=== PATIENT | female | born 1995 | race Caucasian/White ===

== ENCOUNTER 2020-07-19 17:45 | Emergency (ER) | payer OTHER ==
[~2020-07-19 17:45] MED LIST: CIPRO500 MG PO; FLOMAX0.4 MG PO; K-DUR20 MEQ PO; NORCO 5-325 TA1 EACH PO; ONDANSETRON ODT4 MG PO
[2020-07-19] MEDS ORDERED: CLEOCIN300 MG PO (21:17)
[2020-07-19] MEDS ORDERED: NORCO 5-325 TA1 EACH PO (21:17)
== END 2020-07-19 21:42 | disposition home or self-care (01) ==
LOC: FER 17:45
DX: L03.112 Cellulitis of left axilla (principal); L02.412 Cutaneous abscess of left axilla; Z98.890 Other specified postprocedural states
CPT/HCPCS: 87070; 87077; 87186; 87205

== ENCOUNTER 2020-09-26 13:27 | Emergency (ER) | payer OTHER ==
[~2020-09-26 13:27] MED LIST changes: +CLEOCIN300 MG PO
[2020-09-26 14:26] LABS: BILIRUBIN 1+ mg/dL (NEGATIVE); BLOOD 1+ Ery/uL (NEGATIVE); COLOR YELLOW (YELLOW); GLUCOSE (U) NORMAL (NORMAL); LEUKOCYTES NEGATIVE Leu/uL (NEGATIVE); NITRITE NEGATIVE (NEGATIVE); PROTEIN 1+ mg/dL (NEGATIVE); SPECIFIC GRAVITY >=1.030 (1.001-1.030); UROBILINOGEN 0.2 mg/dL (0.2-1.0)
[2020-09-26 14:27] LABS: CLARITY HAZY (CLEAR)
[2020-09-26 14:38] LABS: AMORPHOUS URATES CRYSTALS TRACE; BACTERIA TRACE; MUCOUS TRACE
[2020-09-26 14:39] LABS: URINARY RBC RARE
[2020-09-26 15:15] LABS: BASOPHIL 0.5 % (0-2); EOSINOPHIL 0.1 % (0-5); HCT 37.1 % (37.0-47.0); HGB 12.8 g/dl (12.5-16.0); LYMPHOCYTE 12.4 % (15-48); MCH 29.4 pg (25.0-31.0); MCHC 34.5 g/dL (32.0-36.0); MCV 85.3 fL (78.0-100.0); MONOCYTE 5.2 % (0-12); MPV 8.6 fL (6.0-9.5); NEUTROPHIL 81.3 % (41-80); NRBC 0; PLT 293 K/uL (150-400); RBC 4.35 M/uL (4.20-5.40); WBC 11.1 K/uL (4.0-10.5)
[2020-09-26 15:32] LABS: ALBUMIN 4.1 g/dL (3.4-5.0); BILIRUBIN - TOTAL 0.4 mg/dL (0.2-1.0); BUN/CREAT RATIO (CALC) 15.7 RATIO; CREATININE 0.83 mg/dL (0.51-0.95); GLOBULIN (CALCULATION) 3.8 g/dL; POTASSIUM 3.8 mmol/L (3.5-5.1); TOTAL PROTEIN 7.9 g/dL (6.4-8.2)
[2020-09-26] MEDS ORDERED: ONDANSETRON ODT4 MG PO (17:28)
[2020-09-26] MEDS ORDERED: FLOMAX0.4 MG PO (17:28)
[2020-09-26] MEDS ORDERED: NORCO 5-325 TA1 EACH PO (17:35)
== END 2020-09-26 18:08 | disposition home or self-care (01) ==
LOC: FER 13:27
PROVIDERS: Emergency Medicine; Physician Assistant
DX: N13.2 Hydronephrosis with renal and ureteral calculous obstruction (principal)
CPT/HCPCS: 36415; 80053; 81001; 85025; J1885; J2405; J7030